=== PATIENT | female | born 1955 | race Two or more races ===

== ENCOUNTER 2017-12-19 12:26 | Outpatient (CLI) | payer OTHER | END 2017-12-22 12:40 | disposition home or self-care (01) | LOC: NUCLEAR 12:26 | DX: C73 Malignant neoplasm of thyroid gland (principal); E89.0 Postprocedural hypothyroidism | CPT/HCPCS: 78018; 78020; 79005; A9517 ==

== ENCOUNTER 2017-12-25 09:59 | Outpatient (CLI) | payer OTHER | END 2017-12-25 11:05 | disposition home or self-care (01) | LOC: NUCLEAR 09:59 | DX: C73 Malignant neoplasm of thyroid gland (principal) | CPT/HCPCS: 79005; A9517 ==

== ENCOUNTER 2018-01-01 10:50 | Outpatient (CLI) | payer OTHER | END 2018-01-01 11:08 | disposition home or self-care (01) | LOC: NUCLEAR 10:50 | DX: C73 Malignant neoplasm of thyroid gland (principal) ==